=== PATIENT | male | born 1990 | race Caucasian/White ===

== ENCOUNTER 2017-10-21 09:33 | Emergency (ER) | payer OTHER ==
[~2017-10-21] VITALS: Ht 177.8 cm; Wt 107.0 kg
[~2017-10-21 09:33] MED LIST: MULTTAB58 PO
[2017-10-21 09:37] VITALS: TEMP 36.9; Ht 177.8 cm; Wt 107.0 kg
--- NOTE | 2017-10-21 13:03 | DIAGNOSTIC IMAGING REPORT ---
R VENOUS DOPP LOWER EXT UNILAT CLINICAL HISTORY: 27 years-old Male presenting with CRUSH INJURY RIGHT LOWER LEG. TECHNIQUE: Real-time grayscale and color and spectral Doppler ultrasound imaging of the veins of the right lower extremity was performed. Compression and augmentation were also utilized. COMPARISON: None. FINDINGS: Right: Common femoral vein: Patent. Greater saphenous vein: Patent. Deep femoral vein: Patent. Femoral vein: Patent. Popliteal vein: Patent. Calf veins: Patent. Other: None. IMPRESSION: No evidence of deep venous thrombosis. Electronically signed by: David Kamara M.D. 10/21/2017 1:02 PM Dictated Date/Time: 10/21/2017 1:02 PM
[2017-10-21 13:10] VITALS: BP 115/73; PULSE 67; O2SAT 95
--- NOTE | 2017-10-21 13:16 | DIAGNOSTIC IMAGING REPORT ---
R ART DOP DUPLEX LWR EXT UNI CLINICAL HISTORY: 27 years-old Male presenting with CRUSH INJURY RIGHT LOWER LEG, numbness after crush injury. TECHNIQUE: Real-time grayscale and color and spectral Doppler ultrasound imaging of the right lower extremity arteries was performed. Measurements calculated based on NASCET criteria. COMPARISON: None. FINDINGS: Right: Common femoral artery: Patent. Peak systolic velocity 95 cm/s. Superficial femoral artery: Patent. Peak systolic velocity 110 cm/s. Deep femoral artery: Patent. Peak systolic velocity 48 cm/s. Popliteal artery: Patent. Peak systolic velocity 70 cm/s. Anterior tibial artery: Patent. Peak systolic velocity 84 cm/s. Posterior tibial artery: Patent. Peak systolic velocity 58 cm/s. Peroneal artery: Patent. Peak systolic velocity 56 cm/s. Dorsalis pedis: Patent. Peak systolic velocity 34 cm/s. DENISE Brachial: Right: 122 mmHg, Left: 110 mmHg. Ankle (Posterior tibial): Right: 131 mmHg, Left: 125 mmHg. Ankle (Dorsalis pedis): Right: 130 mmHg, Left: 135 mmHg. Ankle/Brachial Index: Right: 1.07, Left: 1.02-1.11. Reference ranges: Normal DENISE 1.0-1.4; 0.9-0.99 borderline; less than 0.9 abnormal. IMPRESSION: 1. No hemodynamically significant stenosis. 2. Normal ankle-brachial indices. Electronically signed by: David Kamara M.D. 10/21/2017 1:14 PM Dictated Date/Time: 10/21/2017 1:08 PM
--- NOTE | 2017-10-21 13:34 | EMERGENCY ROOM VISIT NOTE ---
ED Visit Note First contact with patient: 10:02 CHIEF COMPLAINT: Right lower leg injury 5 days HISTORY OF PRESENT ILLNESS: Patient is a an otherwise healthy 27-year-old white male referred to the emergency department from [facility] for evaluation of a right lower leg injury. He reports that in the inclement weather about 5 days ago, his roughly 500 pound rabbit hutch was tipped over. He states that he was able to stand it up, and as he was walking away, it fell over again, this time landing on his right lower leg and pinning him before about 5-10 minutes. He states that he had expected soreness, swelling and bruising in the right lateral calf after the injury, and limped on it for the first day, but otherwise states that he was able to walk normally on a. He applied ice to the area, but did not take any medication for discomfort. The swelling and bruising have improved slightly, he does have some superficial abrasions noted also. He denies any knee or ankle joint pain. He has numbness in the lateral right calf where he was struck, but denies any numbness, tingling or weakness distally. Patient reports that he was seen by Noris Hernandez PA-C this morning about 2 hours ago. He had an x-ray performed but is unaware of the results of the x-rays and was supposed to see orthopedics at 930. He states that at 915 the [place] from the orthopedic surgeon's office came out and told him that due to the severity of his injury he needed to be seen in the emergency department for evaluation. REVIEW OF SYSTEMS: Review of systems as per HPI. All other systems reviewed were negative. 10 systems reviewed. PMH: Electronic medical records are reviewed and summarized as above/below. See Problem List. SOCIAL HISTORY: Patient lives at home with his children. Non-smoker. He is employed. PHYSICAL EXAM: Vital Signs: Reviewed Nurse's notes. CONSTITUTIONAL: Patient is a pleasant, well-appearing 27-year-old white male who is awake and alert and in no acute distress. MUSCULOSKELETAL: Examination of the patient's right lower extremity notes superficial abrasions, generalized soft tissue swelling and ecchymosis of the right calf, primarily laterally. The calf is otherwise soft, there is no muscle belly firmness. He has tenderness over the area of injury, particularly in the mid fibula, there is no pain over the anterior tibial spine. The knee and ankle are nontender, no joint effusion is palpable. The knee and ankle range of motion are full. The foot is warm and well perfused with easily palpable PT and DP pulses. Sensation to light touch is intact over the entire right lower extremity, just slightly diminished over the right lateral calf. Normal gait. EMERGENCY DEPARTMENT COURSE: The patient was seen and examined as above. His [employer] record was accessed and I was able to review his x-rays which per my interpretation did not show any evidence for acute fracture. Official report is pending. According to the office visit note from Neetu Hernandez PA-C, she was referring to orthopedics for possible compartment syndrome. By exam the patient does not have any findings that are concerning for compartment syndrome. His calf is soft, he has expected tenderness over the site of the injury, normal sensation and pulses distally. Ultrasound both arterial and Doppler of the right lower extremity were obtained and were negative for arterial compromise or DVT. The patient declined crutches, he has Edmar wraps at home that he can use for compression. He was encouraged to elevate as much as possible, and return to normal activity as his symptoms allow. The numbness over the site of the injury I suspect is related to the soft tissue contusion, possibly some nerve irritation due to the hematoma. It does not appear consistent with peroneal nerve palsy. His exam is not consistent with compartment syndrome. Differential diagnoses entertained included hematoma, DVT , cellulitis, phlebitis, among others. Medication reconciliation: I attest that I have personally reviewed the patient' s current medication list. Blood pressure screening : Patient was found to have normal blood pressure on screening and does not require follow-up. R ART DOP DUPLEX LWR EXT UNI CLINICAL HISTORY: 27 years-old Male presenting with CRUSH INJURY RIGHT LOWER LEG, numbness after crush injury. TECHNIQUE: Real-time grayscale and color and spectral Doppler ultrasound imaging of the right lower extremity arteries was performed. Measurements calculated based on NASCET criteria. COMPARISON: None. FINDINGS: Right: Common femoral artery: Patent. Peak systolic velocity 95 cm/s. Superficial femoral artery: Patent. Peak systolic velocity 110 cm/s. Deep femoral artery: Patent. Peak systolic velocity 48 cm/s. Popliteal artery: Patent. Peak systolic velocity 70 cm/s. Anterior tibial artery: Patent. Peak systolic velocity 84 cm/s. Posterior tibial artery: Patent. Peak systolic velocity 58 cm/s. Peroneal artery: Patent. Peak systolic velocity 56 cm/s. Dorsalis pedis: Patent. Peak systolic velocity 34 cm/s. DENISE Brachial: Right: 122 mmHg, Left: 110 mmHg. Ankle (Posterior tibial): Right: 131 mmHg, Left: 125 mmHg. Ankle (Dorsalis pedis): Right: 130 mmHg, Left: 135 mmHg. Ankle/Brachial Index: Right: 1.07, Left: 1.02-1.11. Reference ranges: Normal DENISE 1.0-1.4; 0.9-0.99 borderline; less than 0.9 abnormal. IMPRESSION: 1. No hemodynamically significant stenosis. 2. Normal ankle-brachial indices. R VENOUS DOPP LOWER EXT UNILAT CLINICAL HISTORY: 27 years-old Male presenting with CRUSH INJURY RIGHT LOWER LEG. TECHNIQUE: Real-time grayscale and color and spectral Doppler ultrasound imaging of the veins of the right lower extremity was performed. Compression and augmentation were also utilized. COMPARISON: None. FINDINGS: Right: Common femoral vein: Patent. Greater saphenous vein: Patent. Deep femoral vein: Patent. Femoral vein: Patent. Popliteal vein: Patent. Calf veins: Patent. Other: None. IMPRESSION: No evidence of deep venous thrombosis. Problem List Surgical Problems: (1) H/O hernia repair Status: Resolved Current/Historical Medications No Active Prescriptions or Reported Meds Allergies Coded Allergies: No Known Allergies (Verified , 10/21/17) Vital Signs Date Time Temp Pulse Resp B/P (MAP) Pulse Ox O2 Delivery O2 Flow Rate FiO2 10/21/17 13:10 67 16 115/73 95 Room Air 10/21/17 09:37 36.9 99 18 142/91 99 Room Air Departure Information Impression Primary Impression: Crushing injury of right lower leg Prescriptions No Active Prescriptions or Reported Meds Referrals Delfino Aggarwal M.D. (PCP) Patient Instructions My [facility] Additional Instructions Ibuprofen(Motrin, Advil) may be used for fever or pain. Use 600mg every six hours as needed. Take with food. Avoid using more than 2400mg in a 24 hour period. Do not use 2400mg per day for more than three consecutive days without physician direction. Prolonged inappropriate use can lead to stomach upset or ulcers. This medication can be taken if you need to drive, work, or perform activities which may be dangerous when taking narcotic pain medication. (AND/OR) Acetaminophen(Tylenol) may be used for fever or pain. Use 1000mg every six hours as needed. Avoid using more than 3000mg in a 24 hour period. This medication can be taken if you need to drive, work, or perform activities which may be dangerous when taking narcotic pain medication. Use the Edmar wraps/compression stocking as discussed. Rest and elevate your injury. May resume normal activity as pain allows. Continue current medications. Return to the ER immediately for weakness in the extremity, severe pain, extreme swelling in the extremity or as needed. Follow up with your primary care physician as needed. Problem Qualifiers Primary Impression: Crushing injury of right lower leg Encounter type: initial encounter Qualified Codes: S87.81XA - Crushing injury of right lower leg, initial encounter
== END 2017-10-21 13:38 | disposition home or self-care (01) ==
LOC: C.EDB 09:34
DX: S87.81XA Crushing injury of right lower leg, initial encounter (principal); W22.8XXA Striking against or struck by other objects, initial encounter; Y92.89 Other specified places as the place of occurrence of the external cause